=== PATIENT | female | born 1975 | race Caucasian/White ===

== ENCOUNTER 2016-05-04 18:30 | Emergency (ER) | payer SELFPAY ==
[~2016-05-04 18:30] MED LIST: PT DENIES MEDS
== END 2016-05-04 19:01 | disposition home or self-care (01) ==
LOC: ER 18:30
PROC: 2W3CX1Z Immobilization of Right Lower Arm using Splint (ICD-10-PCS; principal; 2016-05-04)
DX: S60.211A Contusion of right wrist, initial encounter (principal); F17.200 Nicotine dependence, unspecified, uncomplicated; Z88.6 Allergy status to analgesic agent; Z88.8 Allergy status to other drugs, medicaments and biological substances; X58.XXXA Exposure to other specified factors, initial encounter
CPT/HCPCS: 73110-RT; 73130-RT; 96372; 99283; J1170; J2405

== ENCOUNTER 2016-05-26 12:32 | Emergency (ER) | payer SELFPAY | END 2016-05-26 12:45 | disposition home or self-care (01) | LOC: ER 12:32 | DX: B02.9 Zoster without complications (principal); Z88.6 Allergy status to analgesic agent; Z88.8 Allergy status to other drugs, medicaments and biological substances | CPT/HCPCS: 99282 ==

== ENCOUNTER 2016-06-22 14:34 | Emergency (ER) | payer SELFPAY | END 2016-06-22 19:23 | disposition home or self-care (01) | LOC: ER 14:34 | PROC: 0RSKXZZ Reposition Left Shoulder Joint, External Approach (ICD-10-PCS; principal; 2016-06-22) | DX: S43.015A Anterior dislocation of left humerus, initial encounter (principal); F17.200 Nicotine dependence, unspecified, uncomplicated; Z88.8 Allergy status to other drugs, medicaments and biological substances; X58.XXXA Exposure to other specified factors, initial encounter | CPT/HCPCS: 36600; 73030-LT; 96374; 96376; 99283; A9270-GY; J1170; J2405 ==

== ENCOUNTER 2016-07-01 12:47 | Emergency (ER) | payer SELFPAY | END 2016-07-01 13:00 | disposition home or self-care (01) | LOC: ER 12:47 | DX: R51 Headache (principal); F41.9 Anxiety disorder, unspecified; Z87.891 Personal history of nicotine dependence; Z98.890 Other specified postprocedural states; Z88.6 Allergy status to analgesic agent; Z88.8 Allergy status to other drugs, medicaments and biological substances | CPT/HCPCS: 99283 ==